=== PATIENT | male | born 1990 | race Asian ===

== ENCOUNTER 2017-05-18 23:55 | Emergency (ER) | payer OTHER ==
--- NOTE | 2017-05-19 | EDPHY ---
H & P HPI/ROS: HPI CHIEF COMPLAINT: Left great toe pain. HISTORY OF PRESENT ILLNESS: This patient otherwise healthy 26-year-old male, denies any significant medical history or surgical history does not take any medications presents emergency room with left great toe pain. He was doing ballet and jumped up in the air and brought his feet back down as he landed he landed on his left great toe. Now has pain at the base of the left great toe. No other injuries. Is able to bear weight. No significant swelling. Pain is 3 /10. Happened approximately an hour ago. Past Medical History: No significant medical history Past Surgical History: No significant surgical history Social History: Denies daily use of alcohol or tobacco. Smokes marijuana daily. Works as a [employer] Family History: Noncontributory ROS REVIEW OF SYSTEMS: A comprehensive 10 point review of systems is otherwise negative aside from elements mentioned in the history of present illness. Exam Constitutional appears well nontoxic, triage nursing summary reviewed, vital signs reviewed, awake/alert. Eyes normal conjunctivae and sclera, EOMI, PERRLA. HENT normal inspection, atraumatic, moist mucus membranes, no epistaxis, neck supple/ no meningismus, no raccoon eyes. Respiratory clear to auscultation bilaterally, normal breath sounds, no respiratory distress, no wheezing. Cardiovascular rate normal, regular rhythm, no murmur, no edema, distal pulses normal. Gastrointestinal soft, non-tender, no rebound, no guarding, normal bowel sounds, no distension, no pulsatile mass. Genitourinary no CVA tenderness. Musculoskeletal left lower extremity: Good distal pulse. Good cap refill. Tender palpation over the base of the left great toe. Neurovascular intact. Full range of motion. Good cap refill. Good pulse. No compartment syndrome. No obvious deformity per significant swelling. no midline vertebral tenderness , full range of motion, no calf swelling, no tenderness of extremities, no meningismus, good pulses, neurovascularly intact. Skin pink, warm, & dry, no rash, skin atraumatic. Neurologic awake, alert and oriented x 3, AAOx3, moves all 4 extremities equally, motor intact, sensory intact, CN II-XII intact, normal cerebellar, normal vision, normal speech. Psychiatric normal mood/affect. Heme/Lymph/Immune no lymphadenopathy. Differential Diagnosis: Includes but is not limited to in a particular order fracture of the great left toe, dislocation, soft tissue injury, bony contusion. Medical Decision Making: Patient declined pain medicine here in emergency room. Plan for x-ray of the left foot. Most likely placed in a postop shoe. Follow-up podiatry. Re-evaluation: Xray Reviewed. NEgative for Fx. Will place in Post op shoe for a few days. ICE/ Rest/Elevation/NSAIDS. POD follow up if needed. Source: Patient - Medical/Surgical History Hx Asthma: No Hx Chronic Respiratory Disease: No Hx Diabetes: No Hx Cardiac Disease: No Hx Renal Disease: No Hx Cirrhosis: No Hx Alcoholism: No Hx HIV/AIDS: No Hx Splenectomy or Spleen Trauma: No Other PMH: denies - Social History Smoking Status: Current some day smoker Constitutional: Initial Vital Signs Temperature (C) 36.5 C 05/18/17 23:58 Heart Rate 56 L 05/18/17 23:58 Respiratory Rate 16 05/18/17 23:58 Blood Pressure 140/70 H 05/18/17 23:58 O2 Sat (%) 94 05/18/17 23:58 O2 Delivery Mode Room Air Allergies/Adverse Reactions: No Known Allergies Allergy (Verified 08/29/15 18:59) Home Medications: Medication Instructions Recorded NK [No Known Home Meds] 08/29/15 Departure - Departure Disposition: Home, Routine, Self-Care Clinical Impression: Contusion, foot Qualifiers: Encounter type: initial encounter Laterality: left Qualified Code(s): S90.32XA - Contusion of left foot, initial encounter Condition: Good Instructions: Foot Contusion (ED) Additional Instructions: 1. Ice your foot. 2. Take ibuprofen or Tylenol alternating every 4-6 hours for pain control. 3. Follow up with Podiatry as needed. Referrals: NONE *PRIMARY CARE P,. [Primary Care Provider] - As per Instructions Lucas Lester DPM [Doctor of Podiatric Medicine] - As per Instructions
[2017-05-19 00:02] VITALS: BP 140/70; PULSE 56; RESP 16; TEMP 97.7; O2SAT 94
== END 2017-05-19 00:49 | disposition home or self-care (01) ==
DX: S90.32XA Contusion of left foot, initial encounter (principal); F17.200 Nicotine dependence, unspecified, uncomplicated; W22.8XXA Striking against or struck by other objects, initial encounter; Y93.41 Activity, dancing